=== PATIENT | male | born 1980 | race Caucasian/White ===

== ENCOUNTER 2021-04-21 09:52 | Day surgery (SDC) | payer MEDICAID ==
[~2021-04-21] VITALS: Ht 177.8 cm; Wt 64.1 kg
[2021-04-21 10:05] VITALS: BP 135/92
[2021-04-21] MEDS ORDERED: MIDAZolam 1 MG/ML 5ML VIAL ONE (10:41)
[2021-04-21] MEDS ORDERED: LIDOcaine Viscous 15ml cup ONE (10:41)
[2021-04-21] MEDS ORDERED: fentaNYL/PF 50MCG/1 ML 2ML syringe ONE (10:41)
[2021-04-21] MEDS ORDERED: diphenhydrAMINE 50 mg/ml inj ONE (10:41)
[2021-04-21] MEDS ORDERED: OXYCODONE PEG (11:22)
[2021-04-21] MEDS ORDERED: LOVENOX SQ (11:22)
[2021-04-21] MEDS ORDERED: SENN1TAB82 PO (11:22)
[2021-04-21] MEDS ORDERED: VALP250S3 PEG (11:22)
[2021-04-21] MEDS ORDERED: MULT-215 PO (11:22)
[2021-04-21] MEDS ORDERED: LOP12.5T PO (11:22)
[2021-04-21] MEDS ORDERED: MELA3TAB70 PO (11:22)
[2021-04-21] MEDS ORDERED: POLY17PO10 PEG (11:22)
[2021-04-21] MEDS ORDERED: MORPHINE IV (11:22)
[2021-04-21] MEDS ORDERED: OLAN5TAB3 PO (11:22)
[2021-04-21] MEDS ORDERED: LORA2VIA30 IJ (11:22)
[2021-04-21] MEDS ORDERED: DOCU283E6 PR (11:22)
[2021-04-21] MEDS ORDERED: ESOM20CA PO (11:22)
[2021-04-21] MEDS ORDERED: BISA10SU60 RC (11:22)
[2021-04-21] MEDS ORDERED: GUAIFENESIN PEG (11:22)
[2021-04-21] MEDS ORDERED: TRAZ-251 PO (11:22)
[2021-04-21 13:04] VITALS: BP 104/67
[2021-04-21 13:14] VITALS: BP 109/66
[2021-04-21 13:24] VITALS: BP 121/71
[2021-04-21 13:34] VITALS: BP 106/74
[2021-04-21 13:44] VITALS: BP 94/69
== END 2021-04-21 14:55 ==
LOC: GI LAB 09:52
PROVIDERS: ATTEND Internal Medicine Gastroenterology
DX: R13.10 Dysphagia, unspecified (principal); K29.70 Gastritis, unspecified, without bleeding; Z87.891 Personal history of nicotine dependence
CPT/HCPCS: 43246; 99152; 99153; B4087; J1200; J2250; J3010; J7060; Z7512; A4620

== ENCOUNTER 2021-05-06 07:08 | Day surgery (SDC) | payer MEDICAID ==
[~2021-05-06] VITALS: Ht 177.8 cm; Wt 64.0 kg
[~2021-05-06 07:08] MED LIST: BISA10SU60 RC; DOCU283E6 PR; ESOM20CA PO; GUAIFENESIN PEG; LOP12.5T PO; LORA2VIA30 IJ; LOVENOX SQ; MELA3TAB70 PO; MORPHINE IV; MULT-215 PO; OLAN5TAB3 PO; OXYCODONE PEG; POLY17PO10 PEG; SENN1TAB82 PO; TRAZ-251 PO; VALP250S3 PEG
[2021-05-06 07:10] VITALS: BP 108/63
[2021-05-06] MEDS ORDERED: PANT-47 PO (07:46)
[2021-05-06] MEDS ORDERED: SERT50TA PO (07:46)
[2021-05-06] MEDS ORDERED: diphenhydrAMINE 50 mg/ml inj ONE (09:18)
[2021-05-06] MEDS ORDERED: fentaNYL/PF 50MCG/1 ML 2ML syringe ONE (09:18)
[2021-05-06] MEDS ORDERED: MIDAZolam 1 MG/ML 5ML VIAL ONE (09:18)
[2021-05-06 10:11] VITALS: BP 150/92
[2021-05-06 10:21] VITALS: BP 128/57
[2021-05-06 10:31] VITALS: BP 93/66
[2021-05-06 10:41] VITALS: BP 97/57
== END 2021-05-06 10:45 | disposition home or self-care (01) ==
LOC: GI LAB 07:08
PROVIDERS: ATTEND Internal Medicine Gastroenterology
DX: T18.2XXA Foreign body in stomach, initial encounter (principal); K29.50 Unspecified chronic gastritis without bleeding; X58.XXXA Exposure to other specified factors, initial encounter; Y93.89 Activity, other specified; Y92.89 Other specified places as the place of occurrence of the external cause; Y99.8 Other external cause status
CPT/HCPCS: 36000; 43239; 99152; 99153; B4087; J1200; J2250; J3010; J7040; Z7512; 76937; 99202; A4620